=== PATIENT | female | born 1985 | race Caucasian/White ===

== ENCOUNTER 2016-11-15 09:21 | Emergency (ER) | payer MEDICAID, OTHER ==
[~2016-11-15] VITALS: Ht 165.1 cm; Wt 65.0 kg
[~2016-11-15 09:21] MED LIST: CYCL-36 PO
[2016-11-15 09:23] VITALS: BP 133/73; PULSE 87; RESP 15; TEMP 98.2; O2SAT 97
--- NOTE | 2016-11-15 09:51 | PD ---
HPI Chief Complaint: Complaint Time Seen by Provider: 09:33 Travel History International Travel<30 days: No Contact w/Intl Traveler<30days: No Traveled to known affect area: No History of Present Illness HPI This patient complains of dysuria and urinary frequency. She's had UTIs before and this feels the same. She does not have flank pain or fever. Symptoms severity is mild PFSH Past Medical History Diminished Hearing: No ?: Not : 2 Para: 2 Miscarriage: 0 : 0 Social History Alcohol Use: Yes (OCCASIONALLY) Tobacco Use: No Substance Use: No Allergies-Medications (Allergen,Severity, Reaction): Coded Allergies: No Known Allergies (Verified , 11/15/16) Reported Meds & Prescriptions Reported Meds & Active Scripts Active Flexeril (Cyclobenzaprine HCl) 10 Mg Tab 10 Mg PO Q8HR Review of Systems General / Constitutional: No: Fever HENT: No: Headaches Cardiovascular: No: Chest Pain or Discomfort Physical Exam Narrative GASTROINTESTINAL: Abdomen soft, non-tender, nondistended. Positive bowel sounds. No hepato-splenomegaly, or palpable masses. No guarding. SKIN: Inspection shows no rash or ulcers. Palpation shows no induration or nodules. Psych: Normal mood and affect. Normal insight and judgment. Data Data Last Documented VS Vital Signs Date Time Temp Pulse Resp B/P Pulse Ox O2 Delivery O2 Flow Rate FiO2 11/15/16 09:23 98.2 87 15 133/73 97 Orders Urinalysis - C+S If Indicated (11/15/16 09:50) Ed Urine Pregnancytest Poc (11/15/16 10:17) Labs Laboratory Tests Test 11/15/16 09:40 Urine Color YELLOW Urine Turbidity HAZY Urine pH 5.5 Urine Specific [place] 1.019 Urine Protein NEG mg/dL Urine Glucose (UA) NEG mg/dL Urine Ketones NEG mg/dL Urine Occult Blood NEG Urine Nitrite NEG Urine Bilirubin NEG Urine Urobilinogen LESS THAN 2.0 MG/DL Urine Leukocyte Esterase MOD Urine RBC 1 /hpf Urine WBC 4 /hpf Urine Squamous Epithelial 3 /hpf Cells Urine Bacteria OCC /hpf Urine Mucus FEW /lpf Microscopic Urinalysis Comment CULT NOT INDICATED MDM Medical Decision Making Medical Screen Exam Complete: Yes Emergency Medical Condition: Yes Medical Record Reviewed: Yes Differential Diagnosis Cystitis, UTI, pyelonephritis Narrative Course I have reviewed the patient's electronic medical record. I reviewed her other 2 urine cultures done here at this facility and neither grew any specific bacteria but instead grew contaminants Urinalysis looks very unimpressive and does not meet the standards to culture Discussed that I recommend she follow up with her physician for pelvic exam given her symptoms with basically normal urine She requested we do that here since she does not have a follow-up physician Nurse present I did a pelvic exam This is essentially normal with no discharge or bleeding or cervical motion tenderness IUD string is seen in proper position Urine is negative Diagnosis Primary Impression: Dysuria Additional Impression: Pelvic pain Additional Instructions: The patient was advised to follow up with their physician and return if they worsen. Med/Other Pt SpecificInfo: Other Disposition: DISCHARGE HOME Condition: Stable Felix Bentley MD Nov 15, 2016 09:51
[2016-11-15 10:07] LABS: BACTERIA, URINE OCC /hpf; BLOOD, URINE NEG (NEG); COMMENT (UR) CULT NOT INDICATED; CULTURE IF INDICATED CULT NOT INDICATED; GLUCOSE,URINE NEG (NEG); KETONE, URINE NEG (NEG); MUCUS URINE FEW /lpf (OCC); NITRITE,URINE NEG (NEG); PH, URINE 5.5 (5.0-8.5); SQUAMOUS EPITHELIAL CELL URINE 3 /hpf (0-5); URINE COLOR YELLOW (YELLW/STRAW)
== END 2016-11-15 11:36 | disposition home or self-care (01) ==
LOC: NEPB 09:21
DX: R30.0 Dysuria (principal); R10.2 Pelvic and perineal pain; R35.0 Frequency of micturition; Z87.440 Personal history of urinary (tract) infections
CPT/HCPCS: 81001; 84703; 99283